=== PATIENT | female | born 1990 | race Caucasian/White ===

== ENCOUNTER 2023-07-11 21:36 | Emergency (ER) | payer SELFPAY ==
[2023-07-11] MEDS ORDERED: Metoclopramide HCl 10 MG (2 mL) VIAL ONE (22:26)
[2023-07-11] MEDS ORDERED: Ketorolac Tromethamine 30 MG (1 mL) VIAL ONE (22:27)
== END 2023-07-11 22:47 | disposition home or self-care (01) ==
LOC: CSHERS 21:36
DX: R53.81 Other malaise (principal)
CPT/HCPCS: 99283; J1885; J2765